=== PATIENT | female | born 1975 | race Two or more races ===

== ENCOUNTER 2018-11-07 22:54 | Emergency (ER) | payer MEDICAID ==
[~2018-11-07] VITALS: Ht 160 cm; Wt 68.0 kg
[2018-11-07 23:49] LABS: Basophils # (auto) 0.1 uL; Eosinophils # (auto) 0.1 uL; Lymphocytes # (auto) 3.8 uL; Mean Corpuscular Volume 74.2 fL (80.0-100.0); Monocytes # (auto) 0.7 uL; Neutrophils # (auto) 5.7 uL; Platelet Count (auto) 403 10^3/uL (140-450); White Blood Cell 10.3 10^3/uL (4.4-10.8)
[2018-11-07 23:50] LABS: Basophils % (auto) 0.8 % (0.0-2.0); Eosinophils % (auto) 0.9 % (0.0-7.0); Hematocrit 35.5 % (36.0-46.0); Hemoglobin 11.2 g/dL (12.2-16.2); Lymphocytes % (auto) 36.5 % (10.0-50.0); Mean Corpuscular Hemoglobin 23.5 pg (28.0-32.0); Mean Corpuscular Hgb Conc. 31.6 g/dL (32.0-36.0); Monocytes % (auto) 6.5 % (0.0-12.0); Neutrophils % (auto) 55.3 % (37.0-80.0); Nucleated Red Blood Cells % 0.4 %; Red Blood Cells 4.78 10^6/uL (4.0-5.20); Red Cell Distribution Width 17.2 % (11.8-14.3)
[2018-11-07 23:58] LABS: INR < 0.93 (0.9-1.15); Partial Thromboplastin Time < 20.0 sec (23.64-32.05)
[2018-11-08 00:02] LABS: Urine Bacteria NONE SEEN /hpf (None Seen); Urine Blood Negative /uL (Negative); Urine Specific Gravity 1.007 (1.001-1.035); Urine WBC <1 /hpf (0 - 5)
[2018-11-08 00:07] LABS: Alanine Aminotransferase 16 U/L (13-56); Albumin 3.4 g/dL (3.4-5.0); Anion Gap 9 (5-15); Blood Urea Nitrogen 10 mg/dL (7-18); Calcium 8.4 mg/dL (8.5-10.1); Carbon Dioxide 23 mmol/L (21-32); Chloride 109 mmol/L (98-107); Glucose 104 mg/dL (74-106); Potassium 5.4 mmol/L (3.5-5.1); Sodium 141 mmol/L (136-145)
[2018-11-08 00:12] LABS: Alkaline Phosphatase 100 U/L (45-117); Aspartate Aminotransferase 54 U/L (15-37); BUN/Creatinine Ratio 9.4; Bilirubin, Total 0.4 mg/dL (0.2-1.0); GFR African American 73 mL/min; GFR Non-African American 60 mL/min
[2018-11-08 01:16] LABS: Alcohol, Urine < 3.0 mg/dL (0-5); Amphetamine Screen, Urine NEGATIVE (NEGATIVE); Barbiturate Scree,Urine NEGATIVE (NEGATIVE); Benzodiazephine Screen, Urine NEGATIVE (NEGATIVE); Cannabinoid Screen, Urine NEGATIVE (NEGATIVE)
[2018-11-08 01:24] LABS: Cocaine Screen, Urine NEGATIVE (NEGATIVE); Opiate Scree,Urine NEGATIVE (NEGATIVE); Phencyclidine Screen, Urine NEGATIVE (NEGATIVE)
[2018-11-08 02:16] VITALS: BP 122/69
[2018-11-08] MEDS ORDERED: LORazepam 0.5 MG TAB PO ONE (02:30)
== END 2018-11-08 02:45 | disposition home or self-care (01) ==
LOC: ER 22:58
DX: F44.9 Dissociative and conversion disorder, unspecified (principal)
CPT/HCPCS: 36415; 51702; 70450; 71045; 72125; 80053; 80307; 81001; 82962; 84484; 85025; 85610; 85730; 93005; 94761